=== PATIENT | male | born 1975 | race Caucasian/White ===

== ENCOUNTER 2018-01-31 19:30 | Emergency (ER) | payer BC ==
[2018-01-31 21:06] LABS: Amphetamine Screen,Urine Not Detected (NotDetected); Barbiturate Screen,Urine Not Detected (NotDetected); Benzodiazepines Screen,Urine Not Detected (NotDetected); Cocaine Screen,Urine Not Detected (NotDetected); Methadone Screen, Urine Not Detected (NotDetected); Opiate Screen,Urine Not Detected (NotDetected); Oxycodone Screen, Urine Not Detected (NotDetected); Phencyclidine Screen,Urine Not Detected (NotDetected); Tricyclic Antidepressant,Urine Not Detected (NotDetected); Urn Cannabinoid Scrn Not Detected (NotDetected)
--- NOTE | 2018-01-31 21:48 | ED ---
Psych HPI - General Chief Complaint: Psychiatric Symptoms Stated Complaint: mental health Time Seen by Provider: 01/31/18 19:42 Source: patient, family Mode of arrival: ambulatory - History of Present Illness Initial Comments: 42-year-old male patient presents to the emergency department today for complaints of increased depression and anxiety. Patient states he isn't having issues with depression over the last 3 months. States that 3 weeks ago he was started on Lexapro by his physician. His reports that over the last 3 days he has been laying in bed and crying. Patient states that he is fearful about his current mental health condition and feels anxious. Patient denies any suicidal or homicidal ideation. He denies any history of suicide attempt. He denies any alcohol or drug use. Patient states that he is unsure why he is so depressed and would like to get help. Patient denies any physical symptoms. Patient denies any recent rash, fever, chills, shortness breath, chest pain, abdominal pain, nausea, vomiting, diarrhea, constipation, back pain, numbness, tingling, dizziness, weakness, hematuria, dysuria, urinary urgency, urinary frequency, headache, visual changes, or any other complaints. - Related Data Home Medications Medication Instructions Recorded Confirmed ALPRAZolam [Xanax] 0.25 mg PO TID PRN 01/31/18 01/31/18 Escitalopram [Lexapro] 10 mg PO DAILY 01/31/18 01/31/18 Allergies Allergy/AdvReac Type Severity Reaction Status Date / Time No Known Allergies Allergy Verified 01/31/18 21:09 Review of Systems ROS Statement: Those systems with pertinent positive or pertinent negative responses have been documented in the HPI. ROS Other: All systems not noted in ROS Statement are negative. Past Medical History Past Medical History: No Reported History History of Any Multi-Drug Resistant Organisms: None Reported Past Surgical History: No Surgical Hx Reported Past Psychological History: Depression Smoking Status: Never smoker Past Alcohol Use History: Occasional Past Drug Use History: None Reported General Exam Limitations: no limitations General appearance: alert, in no apparent distress, other (This is a well- developed, well-nourished adult male patient in no acute distress. Vital signs upon presentation are temperature 98.1F, pulse 62, respirations 18, blood pressure 148/86, pulse ox 99% on room air.) Eye exam: Present: normal appearance, PERRL, EOMI. Absent: scleral icterus, conjunctival injection, periorbital swelling ENT exam: Present: normal exam, normal oropharynx, mucous membranes moist Respiratory exam: Present: normal lung sounds bilaterally. Absent: respiratory distress, wheezes, rales, rhonchi, stridor Cardiovascular Exam: Present: regular rate, normal rhythm, normal heart sounds. Absent: systolic murmur, diastolic murmur, rubs, gallop, clicks Neurological exam: Present: alert, oriented X3, CN II-XII intact Psychiatric exam: Present: normal affect, normal mood, depressed Skin exam: Present: warm, dry, intact, normal color. Absent: rash Course Vital Signs 01/31/18 01/31/18 19:33 22:00 Temperature 98.1 F 98 F Pulse Rate 62 77 Respiratory 18 16 Rate Blood Pressure 148/86 118/77 O2 Sat by Pulse 99 98 Oximetry Medical Decision Making - Medical Decision Making 42-year-old male patient presented to the emergency department today for evaluation of increased depression and anxiety. Physical examination was unremarkable. Patient was evaluated by emergency psych services. It is felt that he is safe to be discharged home for outpatient follow-up with mental health services in his primary care physician. Patient does have an appointment with his primary care physician at the beginning of this week. He is urged to keep that appointment. He was given outpatient referral for counseling. Return parameters discussed in detail. He is instructed to return here immediately for any new, worsening, or concerning symptoms. He verbalizes understanding and agrees with this plan. - Lab Data Lab Results 01/31/18 Range/Units 20:33 Urine Opiates Screen Not Detected (NotDetected) Ur Oxycodone Screen Not Detected (NotDetected) Urine Methadone Screen Not Detected (NotDetected) Ur Propoxyphene Screen Not Detected (NotDetected) Ur Barbiturates Screen Not Detected (NotDetected) U Tricyclic Antidepress Not Detected (NotDetected) Ur Phencyclidine Scrn Not Detected (NotDetected) Ur Amphetamines Screen Not Detected (NotDetected) U Methamphetamines Scrn Not Detected (NotDetected) U Benzodiazepines Scrn Not Detected (NotDetected) Urine Cocaine Screen Not Detected (NotDetected) U Marijuana (THC) Screen Not Detected (NotDetected) Disposition Clinical Impression: Depression, Anxiety Disposition: HOME SELF-CARE Condition: Good Instructions: Depression (ED), Anxiety (ED) Additional Instructions: Follow-up outpatient for mental health services. Follow-up with your primary care physician as soon as possible. Return here immediately for any new, worsening, or concerning symptoms. Referrals: Yves Vaughan DO [Primary Care Provider] - 1-2 days Time of Disposition: 21:48
[2018-01-31 22:01] VITALS: BP 118/77; PULSE 77; RESP 16; TEMP 98
== END 2018-01-31 22:05 | disposition home or self-care (01) ==
LOC: EC 19:30
DX: F32.9 Major depressive disorder, single episode, unspecified (principal); F41.9 Anxiety disorder, unspecified; Z79.899 Other long term (current) drug therapy
CPT/HCPCS: 80306; 82075; 99284

== ENCOUNTER → 2020-08-10 | Outpatient (CLI) | payer OTHER ==
--- NOTE | 2020-08-10 10:11 | FL ---
EXAMINATION: Cervical and Thoracic Esophagram DATE OF EXAM: 08/10/2020 CLINICAL INDICATION: 45-year-old male K22.8, other specified diseases of esophagus, chronic GERD. COMPARISON: None Total fluoroscopy Time: 1 minute 28 seconds (radiation dose was decreased by utilizing only last imag e hold save screens and the lowest fluoroscopy rate). Total images: 40 FINDINGS: The swallowing mechanism is normal and hypopharyngeal anatomy is preserved. The cervical and thoracic portions have a normal course and caliber and normal motility. The mucosa is normal and no persistent filling defect is encountered. There is a moderate-sized sliding hiatal hernia and severe gastroesophageal reflux to the thoracic in let. IMPRESSION: Moderate-sized sliding hiatal hernia and severe gastroesophageal reflux up to the thoracic inlet.
== END | disposition home or self-care (01) ==
LOC: RADUSWWP 08:54
PROVIDERS: ATTEND Family Medicine
DX: K21.9 Gastro-esophageal reflux disease without esophagitis (principal); K44.9 Diaphragmatic hernia without obstruction or gangrene
CPT/HCPCS: 74220

== ENCOUNTER 2022-05-20 13:15 | Emergency (ER) | payer OTHER ==
[2022-05-20] MEDS ORDERED: DIPH,PERTUS(ACELL)TETVAC-LF 0.5 ML VIAL IM ONE (13:22)
[2022-05-20 13:26] VITALS: RESP 18; TEMP 98
--- NOTE | 2022-05-20 13:36 | ED ---
General Adult HPI - General Chief complaint: Altered Mental Status Stated complaint: SELF HARM Time Seen by Provider: 05/20/22 13:20 Source: patient, police, EMS, RN notes reviewed, old records reviewed Mode of arrival: EMS - History of Present Illness Initial comments: This 47-year-old male presents emergency Department stating he has a past medical history significant for bipolar. Patient states he had medications which couple weeks ago and ever since then he is becoming more more angry and today he got to the point where he wanted to hurt himself but did not want to kill himself. Patient states he cut his left wrist and went to see his primary medical care doctor after this they decided to call the ore washer and bring him into the hospital. Records Tech will be petitioning the patient be evaluated. Patient denies any alcohol use or drug use per patient denies any physical complaint today. Patient denies any recent fever chills or cough. Patient denies any chest pain difficulty breathing shortness of breath per patient denies abdominal pain patient denies nausea vomiting diarrhea. - Related Data Home Medications Medication Instructions Recorded Confirmed Atorvastatin [Lipitor] 10 mg PO HS 05/20/22 05/20/22 Cariprazine HCl [Vraylar] 1.5 mg PO HS 05/20/22 05/20/22 Divalproex ER [Depakote ER] 1,000 mg PO DAILY 05/20/22 05/20/22 Divalproex ER [Depakote ER] 500 mg PO HS 05/20/22 05/20/22 LORazepam [Ativan] 1 mg PO TID PRN 05/20/22 05/20/22 Methylphenidate HCl 20 mg PO BID 05/20/22 05/20/22 Venlafaxine HCl ER [Effexor Xr] 37.5 mg PO DAILY 05/20/22 05/20/22 Venlafaxine HCl [Effexor XR] 150 mg PO DAILY 05/20/22 05/20/22 Allergies Allergy/AdvReac Type Severity Reaction Status Date / Time No Known Allergies Allergy Verified 05/20/22 16:00 Review of Systems ROS Statement: Those systems with pertinent positive or pertinent negative responses have been documented in the HPI. ROS Other: All systems not noted in ROS Statement are negative. Past Medical History Past Medical History: Diabetes Mellitus History of Any Multi-Drug Resistant Organisms: None Reported Past Surgical History: No Surgical Hx Reported Past Psychological History: Bipolar, Depression Smoking Status: Former smoker Past Alcohol Use History: Occasional Past Drug Use History: None Reported General Exam - General Exam Comments Initial Comments: GENERAL: Patient is well-developed and well-nourished. Patient is nontoxic and well- hydrated and is in no acute distress. ENT: Neck is soft and supple. No significant lymphadenopathy is noted. Oropharynx is clear. Moist mucous membranes. Neck has full range of motion without eliciting any pain. EYES: The sclera were anicteric and conjunctiva were pink and moist. Extraocular movements were intact and pupils were equal round and reactive to light. Eyelids were unremarkable. PULMONARY: Unlabored respirations. Good breath sounds bilaterally. No audible rales rhonchi or wheezing was noted. CARDIOVASCULAR: There is a regular rate and rhythm without any murmurs gallops or rubs. ABDOMEN: Soft and nontender with normal bowel sounds. SKIN: Patient has approximately 6 cm laceration to the left wrist. NEUROLOGIC: Patient is alert and oriented x3. Cranial nerves II through XII are grossly intact. Motor and sensory are also intact. Normal speech, volume and content. Symmetrical smile. Patient is no neuro deficit of the left hand and has good cap refill and good radial pulses. MUSCULOSKELETAL: Normal extremities with adequate strength and full range of motion. LYMPHATICS: No significant lymphadenopathy is noted PSYCHIATRIC: Patient states he cut himself on purpose because he wanted to harm himself. Patient didn't want to commit suicide. Course Vital Signs 05/20/22 13:17 Temperature 98.0 F Pulse Rate 94 Respiratory 18 Rate Blood Pressure 132/95 O2 Sat by Pulse 98 Oximetry Medical Decision Making - Medical Decision Making EPS evaluated the patient with the in the room and felt comfortable going home the patient himself denied suicidal ideations and stated he felt comfortable that he would go home and not try to harm himself again. An patient has an appointment with his psychiatrist in the near future. - Lab Data Lab Results 05/20/22 05/20/22 Range/Units 13:47 15:18 POC Glucose (mg/dL) 101 (70-110) mg/dL POC Glu Glove Cleaner ID [employer] Urine Opiates Screen Not Detected (NotDetected) Ur Oxycodone Screen Not Detected (NotDetected) Urine Methadone Screen Not Detected (NotDetected) Ur Propoxyphene Screen Not Detected (NotDetected) Ur Barbiturates Screen Not Detected (NotDetected) U Tricyclic Antidepress Not Detected (NotDetected) Ur Phencyclidine Scrn Not Detected (NotDetected) Ur Amphetamines Screen Not Detected (NotDetected) U Methamphetamines Scrn Not Detected (NotDetected) U Benzodiazepines Scrn Detected H (NotDetected) Urine Cocaine Screen Not Detected (NotDetected) U Marijuana (THC) Screen Not Detected (NotDetected) Disposition Clinical Impression: Laceration, Bipolar disorder Disposition: HOME SELF-CARE Additional Instructions: Sutures should be removed in 10 days Patient should follow-up per EPS is instructions. Is patient prescribed a controlled substance at d/c from ED?: No Referrals: Yves Vaughan DO [Primary Care Provider] - 1-2 days Time of Disposition: 17:01
[2022-05-20] MEDS ORDERED: LIDOCAINE 1% INJ 10MG/ML (5 ML VIAL-PF) SQ ONE (13:41)
[2022-05-20 14:37] LABS: Amphetamine Screen,Urine Not Detected (NotDetected); Barbiturate Screen,Urine Not Detected (NotDetected); Benzodiazepines Screen,Urine Detected (NotDetected); Cocaine Screen,Urine Not Detected (NotDetected); Methadone Screen, Urine Not Detected (NotDetected); Opiate Screen,Urine Not Detected (NotDetected); Oxycodone Screen, Urine Not Detected (NotDetected); Phencyclidine Screen,Urine Not Detected (NotDetected); Tricyclic Antidepressant,Urine Not Detected (NotDetected); Urn Cannabinoid Scrn Not Detected (NotDetected)
--- NOTE | 2022-05-20 14:38 | ED ---
Disposition Clinical Impression: Laceration Disposition: ADMITTED IP TO THIS HOSP Referrals: Yves Vaughan DO [Primary Care Provider] - 1-2 days Procedures - Laceration Laceration #1 Consent Obtained: verbal consent Indication: laceration Site: upper extremity (left distal forearm) Size (cm): 6 Description: linear Depth: simple, single layer Anesthetic Used: lidocaine 1% Anesthesia Technique: local infiltration (6) Pre-repair: wound explored, irrigated extensively Type of Sutures: nylon Size of Sutures: 5-0 Technique: simple, interrupted Patient Tolerated Procedure: well, no complications
[2022-05-20 15:19] LABS: Glucose,Whole Blood 101 mg/dL (70-110)
[2022-05-20 17:44] VITALS: BP 132/84; PULSE 84
== END 2022-05-20 17:44 | disposition home or self-care (01) ==
LOC: EC 13:15
DX: S61.512A Laceration without foreign body of left wrist, initial encounter (principal); F31.9 Bipolar disorder, unspecified; E11.9 Type 2 diabetes mellitus without complications; Z87.891 Personal history of nicotine dependence; Z79.899 Other long term (current) drug therapy; Z23 Encounter for immunization; X83.8XXA Intentional self-harm by other specified means, initial encounter
CPT/HCPCS: 82075; 36415; 80306; 90715; 99285; 12002; 90471; J2001